=== PATIENT | male | born 1965 | race Caucasian/White ===

== ENCOUNTER → 2017-02-07 | Day surgery (SDC) | payer OTHER ==
[~2017-02-07] MED LIST: LOSARTAN POTASS50 MG PO
--- NOTE | ~2017-02-07 | OR ---
Unit #: [id number] #: [id number] Patient: BALTA DOMINIQUE [id number] [address] [address] [id number] O MR#: [id number] NAME: BALTA DOMINIQUE. ROOM: Date of Procedure: 02/07/2017 Admission Date: 02/07/2017 Surgeon: Sabino Godfrey M.D. : 1965 Attending Physician: Sabino Godfrey M.D. Primary Care Physician: Fernando Bernard M.D. OPERATIVE REPORT PRIMARY CARE PHYSICIAN Fernando Bernard M.D. PREOPERATIVE DIAGNOSES Colorectal cancer screening in a high-risk. The patient has family history of colon cancer in his mother. PROCEDURE PERFORMED Colonoscopy up to cecum with good prep and visualization. POSTOPERATIVE DIAGNOSES The patient had mild sigmoid and descending colon diverticulosis. Otherwise, normal examination up to cecum. The quality of prep was excellent. No polyps were seen. RECOMMENDATIONS Repeat colonoscopy in 5 years. SEDATION USED MAC. DESCRIPTION OF PROCEDURE Following detailed explanation of potential risks and complications of a colonoscopy, namely perforation, bleeding, and complications related to sedation, the patient was brought to GI lab and laid in the left lateral decubitus position. A digital rectal examination was performed, which was normal. Lubricated tip of the Olympus video colonoscope was inserted through the anus and advanced under direct vision. The scope was advanced and passed up to sigmoid into descending colon. Scant small diverticula were noted in this area. The scope tip was then navigated all the way up to cecum with visualization of the ileocecal valve and the appendiceal orifice. Preparation was excellent with good visualization and photodocumentation was obtained. Last several inches of the terminal ileum also visualized after intubation of the ileocecal valve and appeared normal. Successive segments of the colonic mucosa were examined upon withdrawal and appeared unremarkable. There being no polyps, mass lesions, or AVMs. Other than the scant diverticula seen earlier, no other abnormalities were noted. The patient did not have any hemorrhoids at the anal verge. The scope was then withdrawn. The patient returned to the recovery area. He tolerated the procedure without any postprocedure complications. Unit #: [id number] #: [id number] Patient: BALTA DOMINIQUE Dictated by... Jocelyne Hurt TD: 02/07/2017 08:06 JOB #: [id number] OPERATIVE REPORT Page 1 of 1 X Sabino Godfrey MD X PROCEDURE OPERATIVE NOTE
== END | disposition home or self-care (01) ==
LOC: COPS 06:08
DX: Z12.11 Encounter for screening for malignant neoplasm of colon (principal); K57.30 Diverticulosis of large intestine without perforation or abscess without bleeding; I10 Essential (primary) hypertension; Z80.0 Family history of malignant neoplasm of digestive organs; Z79.899 Other long term (current) drug therapy; Z98.890 Other specified postprocedural states